=== PATIENT | female | born 1970 | race Caucasian/White ===

== ENCOUNTER → 2018-09-30 | Outpatient (CLI) | payer OTHER ==
[~2018-09-30] MED LIST: ADDERALL XR 3030 MG PO; ADULT LOW DOSE81 MG; AMBIEN 5 MG TABL5 M1 PO; BUTALB-APAP-CA1 EACH PO; CEPHALEXIN; CIPROFLOXACIN500 M3 PO; CYMBALTA30 MG PO; CYMBALTA60 MG; DIFLUCAN OR; DIFLUCAN150 MG PO; DIFLUCAN200 MG PO; ESTRADIOL 1 MG T1 M1 PO; ESTROGEN; FISH OIL 1,001000 M1; GLUCOPHAGE500 MG; HYDROCODONE-APA1 TA1 PO; IBUPROFEN 800800 M1 PO; LEVOTHYROXINE0.05 MG PO; MINOCIN100 MG PO; MULTIVITAMINS PO; PERCOCET 5-3251 EACH PO; PERCOCET PO; PREMPRO 0.625-1 EACH PO; SINGULAIR 10 MG10 M1 PO; TENORMIN25 MG PO; TESSALON PERLE100 MG PO; TRAMADOL 50 MG50 MG PO; VENLAFAXINE HC150 M1 PO; VITAMIN D1000 UNI1; VYBRID; WELLBUTRIN SR150 MG PO; ZANTAC 150MG T150 MG PO
== END ==
LOC: M.RAD 07-23 10:00
DX: Z12.31 Encounter for screening mammogram for malignant neoplasm of breast (principal)

== ENCOUNTER → 2019-11-08 | Outpatient (CLI) | payer OTHER | LOC: M.RAD 10:00 | PROVIDERS: ATTEND Family Medicine | DX: Z12.31 Encounter for screening mammogram for malignant neoplasm of breast (principal) ==

== ENCOUNTER → 2020-12-27 | Outpatient (CLI) | payer OTHER | LOC: M.RAD 11-13 07:30 | PROVIDERS: ATTEND Family Medicine | DX: Z12.31 Encounter for screening mammogram for malignant neoplasm of breast (principal) ==